=== PATIENT | female | born 1990 | race Asian ===

== ENCOUNTER 2018-11-27 18:54 | Emergency (ER) | payer OTHER ==
[~2018-11-27] VITALS: Ht 167.6 cm; Wt 118.0 kg
[2018-11-27 18:57] VITALS: BP 138/78; PULSE 131; RESP 18; Ht 167.6 cm; Wt 118.0 kg
[2018-11-27] MEDS ORDERED: LIDOCAINE 1%/EPI (1:100,000) (MDV) 20 ML INJ SCH (20:30)
[2018-11-27] MEDS ORDERED: DIPHTH/TET/ACEL PERTUSS (ADULT) 0.5 ML VIAL IM* ONE (20:30)
[2018-11-27] MEDS ORDERED: LIDOCAINE 1%/EPI (MDV) 50 ML INJ INJ ONE (20:30)
[2018-11-27] MEDS ORDERED: CEFAZOLIN 1 GM INJ IM ONE (22:30)
[2018-11-27] MEDS: ONDANSETRON (ODT) 4 MG TAB ODT STA ×2 (22:40→22:48)
[2018-11-27] MEDS: HYDROCODONE/APAP (10/325) TAB PO ONE ×2 (22:40→22:48)
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
[2018-11-27] MEDS ORDERED: CEPH-443 PO (23:12)
[2018-11-27] MEDS ORDERED: IBUP800T48 PO (23:12)
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
== END 2018-11-28 00:37 | disposition home or self-care (01) ==
LOC: E/R 18:54
DX: S51.812A Laceration without foreign body of left forearm, initial encounter (principal); W26.0XXA Contact with knife, initial encounter; Y92.9 Unspecified place or not applicable
CPT/HCPCS: 12004; 80048; 80307; 81001; 81025; 85025; 96372; J0690; Z7502; Z7610